=== PATIENT | female | born 1980 | race African-American/Black ===

== ENCOUNTER 2016-12-04 10:32 | Emergency (ER) | payer OTHER ==
--- NOTE | ~2016-12-04 | CT71 ---
[facility] A Service of [facility] RADIOLOGY TEXT RESULTS PATIENT: FRANK TINAJERO LOCATION: EAN : 80 UNIT #: [id number] AGE: [address]: Tuan Elizalde DO SEX: F ORDER DR: [id number] [facility] [address] [place], [place] [address] [id number] MR#: [id number] Acc #: [id number] NAME: FRANK TINAJERO : 1980 SEX: F STUDY DATE/TIME: 12/04/2016 12:50 UNIT: EAN ROOM: STUDY DESCRIPTION: CT Head Wo Contrast Attending Physician: Tuan Elizalde D.O. Ordering Physician: Tuan Elizalde D.O. MEDICAL IMAGING REPORT This report is preliminary unless electronic signature is present EXAM Head CT without HISTORY Nausea, vomiting, diarrhea, possibly food poisoning since 03:00 a.m., headache all over head, blurred vision, dizzy since 03:00 a.m. No cancer history. This CT exam was performed with one or more of the following radiation dose reduction techniques: automatic exposure control, adjustment of mA and/or kV according to patient size, and iterative reconstruction. . COMMENT Routine noncontrast head CT is reviewed. Comparison from 04/29/2016. There is no displaced calvarial fracture. The mastoid air cells are clear. The paranasal sinuses are clear. There is subarachnoid blood seen bilaterally including bilateral sylvian fissures around the brainstem in the interpeduncular cistern and the suprasellar cistern in the anterior interhemispheric fissure. Blood is seen in the third ventricle, fourth ventricle and probably layering in the occipital horns. There is either some density related to the vessels or possibly blood products around the cervicomedullary junction region. Presumably this is nontraumatic subarachnoid hemorrhage and I would recommend neurosurgical consultation and further evaluation with conventional angiography to assess for the source of bleed. When comparison is made to the study from 2016 the ventricles are larger and this indicates that there is a component of hydrocephalous likely present due to the acute hemorrhage. Mild sulcal effacement likely present in general in addition to some of blood within the sulci. There is no midline shift. Gaze is disconjugate, etiology undetermined, probably new from prior also. [facility] A Service of [facility] RADIOLOGY TEXT RESULTS PATIENT: FRANK TINAJERO LOCATION: [facility] : [birth year] UNIT #: [id number] AGE: [address]: Tuan Elizalde DO SEX: F ORDER DR: Spoken to Dr. Elizalde during the dictation to relay information to him verbally. Tuan Elizalde D.O. IMPRESSION This patient has acute appearing subarachnoid hemorrhage, fairly extensively. It is seen bilaterally in the sylvian fissures and adjacent convexities. It is seen at the base of the brain and supra sellar cistern in the interpeduncular cistern and surrounding the brainstem, also in the anterior interhemispheric fissure. There is also blood refluxed into the ventricular system seen in the fourth ventricle, third ventricle and to a lesser extent layering in the occipital horns. Findings highly concerning for nontraumatic subarachnoid hemorrhage and further evaluation with neurosurgical consultation and conventional angiography recommended at this time. There is a component of obstructive hydrocephalus likely present. Through ventricles are not enlarged, per say, at this time they are larger than they were in 2016 and this is abnormal. There is mild sulcal effacement in general in addition to filling the sulci with the acute blood products. No midline shift. No downward herniation. At this time the persaud-white junction is maintained. And Dictated by... Lizz Smith M.D. THIS IS AN ELECTRONICALLY VERIFIED REPORT Lizz Smith M.D. at 12/04/2016 5:53 PM Phillip TD: 12/04/2016 13:42 JOB #: [id number] MEDICAL IMAGING REPORT Page 1 of 1 COPY
[2016-12-04 10:17] LABS: URINE SOURCE CLEAN CATCH
[2016-12-04 10:23] LABS: BASOPHIL% 0.3 % (0-2.5); LYMPHOCYTE% 9.1 % (17.0-45.0); MEAN CELL VOLUME 82.6 FL (83-96); MEAN CORPUSCULAR HEMOGLOBIN 28.2 PG (28-34); MEAN CORPUSCULAR HGB CONC 34.1 g/dL (30-36); MEAN PLATELET VOLUME 8.1 FL (6.5-11.5); MONOCYTE# 0.2 X10e3 (0-1.0); MONOCYTE% 1.4 % (3.0-12.0); NEUTROPHIL# 9.7 X10e3 (1.5-7.1); NEUTROPHIL% 89.2 % (40-75); PLATELET COUNT 250 X10e3 (140-420); RED BLOOD COUNT 4.97 X10e (3.90-5.30); RED CELL DISTRIBUTION WIDTH 14.2 % (11.0-15.5); URINE APPEARANCE CLEAR; URINE BILIRUBIN NEG (NEG); URINE BLOOD NEG (NEG); URINE COLOR YELLOW; URINE GLUCOSE NEG (NEG); URINE KETONE TRACE (NEG); URINE LEUKOCYTE ESTERASE NEG (NEG); URINE NITRATE NEG (NEG); URINE PH 7.5 (5-8); URINE PROTEIN 1+ (NEG); URINE SPECIFIC GRAVITY 1.019 (1.003-1.035); URINE UROBILINOGEN 0.2 MG/DL (NEG); WHITE BLOOD COUNT 10.9 X10e3 (4.0-10.5)
[2016-12-04 10:25] LABS: DIFF IND NO; URBCS1 AUWI 0-2 /[HPF] (0-2); URINE BACTERIA AUWI NEG (NEGATIVE); URINE SQUAMOUS EPITHELIAL CELL OCC /[HPF]
[2016-12-04 10:32] LABS: CULTURE INDICATED? NO
[2016-12-04 10:34] LABS: URINE MUCUS PRESENT; UWBCS1 AUWI 0-2 (0-5)
[2016-12-04 10:49] LABS: ALBUMIN SERUM 4.6 g/dL (3.5-5.0); ALKALINE PHOSPHATASE 57 U/L (32-92); ALT (SGPT) 25 U/L (10-40); AST (SGOT) 22 U/L (10-42); BILIRUBIN,TOTAL 0.6 mg/dL (0.2-2.0); BLOOD UREA NITROGEN 9 mg/dL (9-23); CALCIUM SERUM 9.1 mg/dL (8.4-10.2); CARBON DIOXIDE 26 mmol/L (22-31); CHLORIDE 100 mmol/L (100-111); CREATININE SERUM 0.6 mg/dL (0.6-1.4); GLOM FILT RATE Estimated 135.9 mL/min (>60); GLUCOSE FASTING 158 mg/dL (70-110); LIPASE 19 U/L (22-51); POTASSIUM 3.5 mmol/L (3.5-5.1); SODIUM 137 mmol/L (135-145)
[2016-12-04 10:52] LABS: BILIRUBIN, DIRECT <0.1 mg/dL (0.0-0.2); BILIRUBIN,INDIRECT 0.5 mg/dL (0.0-0.9)
[2016-12-04 12:37] LABS: AMPHETAMINE NEG (NEG); BARBITURATES NEG (NEG); BENZODIAZEPINES NEG (NEG); COCAINE NEG (NEG); MARIJUANA POS (NEG); OPIATES NEG (NEG); TRICYCLIC ANTIDEPRESSANTS NEG (NEG); U METHADONE NEG (NEG)
[2016-12-04 14:18] LABS: PARTIAL THROMBOPLASTIN TIME 27.4 SECONDS (23.5-31.3)
== END 2016-12-04 16:50 | disposition hospice, home (50) ==
LOC: CED 10:32
PROVIDERS: Emergency Medicine
DX: I60.9 Nontraumatic subarachnoid hemorrhage, unspecified (principal); I10 Essential (primary) hypertension; R19.7 Diarrhea, unspecified; F17.200 Nicotine dependence, unspecified, uncomplicated
CPT/HCPCS: 36415; 70450; 80048; 80076; 80307; 81003; 83690; 84484; 84703; 85025; 85610; 85730; 96374; 96375; 99285; J0696; J1885; J2405